=== PATIENT | female | born 1990 | race Two or more races ===

== ENCOUNTER 2025-05-08 11:53 | Emergency (ER) | payer OTHER ==
[~2025-05-08] VITALS: Ht 154.9 cm; Wt 54.1 kg
--- NOTE | 2025-05-08 12:10 | ED.PDOC ---
CAR PUSHER HPI Comments HPI: Poor Historian. Past Medical History: Past Surgical History: Patient describes his symptoms as bloating. Symptoms are chronic in nature for the last seven months. Patient is currently on her menstrual cycle. 34y F who presents to the ED for chief complaint of abdominal pain. - pt states she has been having R sided abdominal pain for the past 7 months, chronic in nature - pt states the pain is radiating to the umbilicus, with associated bloating like sensation, with associated exacerbation of pain during her menstrual cycle and while voiding - pt states she has been having associated dysuria and diarrhea but denies any other symptoms - pt states she had control patch removed 1 year prior and was on control pills since and had stopped taking control pills over the past 3 months ago - pt states she has noticed increased pain during these past 3 months - pt states due to moving from [place] to the [facility], she has not yet e stablished care with OB regarding her concerns - pt otherwise denies any other symptoms past medical history: denies past surgical history: Left forearm surgery allergies: denies medications: denies social history: denies tobacco use, denies ETOH use, denies drug use REVIEW OF SYSTEMS: CONSTITUTIONAL: Denies acute: fever, diaphoresis, chills, generalized weakness. HEAD: Denies acute: headache, photophobia Eyes: Denies acute: Double vision, vision loss, eye pain, eye discharge. EARS: Denies acute: tinnitus, hearing loss, ear discharge, ear pain, THROAT: Denies acute: sore throat, swelling, difficulty swallowing , pain with swallowing, change in voice. NECK: Denies acute: neck pain, neck swelling, stiff neck. HEART: Denies acute : chest pain, palpitations, LUNGS: Denies acute: SOB, wheezing, cough, hemoptysis ABDOMEN: Denies acute: Nausea, Vomiting, diarrhea, melena , hematemesis, hematochezia SKIN: Denies acute: rash, redness, lesions, itchiness. EXTREMITIES: Denies acute: calf pain, numbness, tingling, weakness, denies pain in extremity. Denies acute: Low back pain. Neuro: Denies acute: focal neurological deficit, motor or sensory focal neurological deficit, tremors, seizure like activity, confusion, dizziness, change in mental status, loss of bowel or bladder function, cauda equina like symptoms. : Denies acute: dysuria, hematuria, flank pain, increase in urinary frequency. PSYCH: Denies acute: hallucination, suicidal ideation, homicidal ideation. FEMALE: Denies acute: abnormal vaginal bleeding, foul odor, unusual discharge. PHYSICAL EXAM: General: ----minimal---acute distress, awake and alert. Head: normocephalic, atraumatic. Neck: supple, trachea is midline, no swelling. Throat: Normal phonation. Eyes:, no erythema, no purulent discharge, no proptosis, no icterus. Heart: regular rate, regular rhythm, no significant murmur appreciated. Lungs: no apparent respiratory distress, Able to speak in full sentences. No wheezing, no rhonchi, no crackles. No stridors Clear to auscultation bilaterally. Abdomen: Minimal nonspecific discomfort in the periumbilical/right sided tender to palpation, non distended, soft, no guarding, no rebound, + bowel sounds. Neuro: Awake, Alert, oriented to name, self, situation, follows commands GCS=15. Speech is normal. Skin: no petechia, no purpura, no cyanosis, non-pale, not jaundice. Lower extremities: --no - Pitting edema no deformity, no focal swelling, no calf TTP. Makes eye contact. moves all four extremities. Face: no apparent facial droop. Ambulating in the ED independently. ED COURSE: DISCLAIMER: This medical document was created using an electronic medical record system with voice recognition software and computerized dictation system. Although this document has been carefully reviewed, there might still be some phonetic and typographical errors. Occasional wrong-word or "sound-alike" substitutions may have occurred due to the inherent limitations of voice recognition software. These areas are purely typographical due to imperfections of the software programs and do not reflect any compromise in the patient's medical care. Please read the chart carefully and recognize, using context, where these substitutions have occurred. Chief Complaint: Abdominal Pain Time Seen by MD: 11:55 Reviewed Notes: Medications, Allergies Allergies: Coded Allergies: NO KNOWN ALLERGIES (Unverified , 05/08/25) Home Meds Active Scripts Nitrofurantoin Monohydrate Mac (Macrobid) 100 Mg Cap, 100 MG PO BID for 7 Days, #14 CAP Prov:LALITHA CAMPBELL DO 05/08/25 Information Source: Patient Mode of Arrival: Ambulatory Brought in by: self Was a procedure done? Was a procedure done?: No X-Ray, Labs, Meds, VS Vital Signs Date Time Temp Pulse Resp B/P (MAP) Pulse Ox O2 Delivery O2 Flow Rate FiO2 05/08/25 17:45 98.3 92 16 105/53 (70) 98 98.3 05/08/25 16:35 84 79 96 Room Air* 0 21 05/08/25 14:47 66 18 99 Room Air 05/08/25 14:47 97.9 66 18 101/62 (75) 99 97.9 05/08/25 12:00 98.7 74 18 109/69 (82) 99 98.7 Lab Test 05/08/25 13:15 05/08/25 12:48 Range/Units Urine Color Light-orange Yellow Urine Clarity Cloudy H Clear Urine pH 6.0 5.0-9.0 Urine Specific [place] 1.044 H 1.001-1.035 Urine Protein 1+ H Negative Urine Ketones 2+ H Negative Urine Blood 3+ H Negative /uL Urine Nitrite Negative Negative Urine Bilirubin Negative Negative Urine Urobilinogen 2 H Negative mg/dL Urine Leukocyte Esterase Negative Negative /uL Urine RBC 674 0 - 4 /hpf Urine Microscopic WBC 2 0-5 /HPF Urine Squamous Epithelial Cells Few <5 /hpf Urine Bacteria Few H None Seen /hpf Urine Mucus Few None Seen Urine Glucose Normal Normal mg/dL Urine Test Negative Negative White Blood Count 9.7 4.4-10.8 10^3/uL Red Blood Count 4.56 4.0-5.20 10^6/uL Hemoglobin 13.2 12.2-16.2 g/dL Hematocrit 39.5 36.0-46.0 % Mean Corpuscular Volume 86.6 80.0-100.0 fL Mean Corpuscular Hemoglobin 28.9 28.0-32.0 pg Mean Corpuscular Hemoglobin Concent 33.4 32.0-36.0 g/dL Red Cell Distribution Width 14.5 H 11.8-14.3 % Platelet Count 214 140-450 10^3/uL Mean Platelet Volume 7.8 6.9-10.8 fL Neutrophils (%) (Auto) 78.7 37.0-80.0 % Lymphocytes (%) (Auto) 13.6 10.0-50.0 % Monocytes (%) (Auto) 7.1 0.0-12.0 % Eosinophils (%) (Auto) 0.4 0.0-7.0 % Basophils (%) (Auto) 0.2 0.0-2.0 % Neutrophils # (Auto) 7.6 1.6-8.6 10 ^3/uL Lymphocytes # (Auto) 1.3 0.4-5.4 10 ^3/uL Monocytes # (Auto) 0.7 0-1.3 10 ^3/uL Eosinophils # (Auto) 0 0-0.8 10 ^3/uL Basophils # (Auto) 0 0-0.2 10 ^3/uL Nucleated Red Blood Cells 0.1 % Sodium Level 141 136-145 mmol/L Potassium Level 3.8 3.5-5.1 mmol/L Chloride Level 108 H 98-107 mmol/L Carbon Dioxide Level 24 20-31 mmol/L Anion Gap 9 5-15 Blood Urea Nitrogen 15 9-23 mg/dL Creatinine 0.83 0.550-1.02 mg/dL Glomerular Filtration Rate Calc 94 >90 mL/min BUN/Creatinine Ratio 18.1 10.0-20.0 Serum Glucose 97 74-106 mg/dL Calcium Level 9.6 8.7-10.4 mg/dL Total Bilirubin 0.5 0.2-1.0 mg/dL Aspartate Amino Transferase (AST) 21 <34 U/L Alanine Aminotransferase (ALT) 19 7-40 U/L Alkaline Phosphatase 75 46-116 U/L Total Protein 7.0 5.7-8.2 g/dL Albumin 4.3 3.2-4.8 g/dL Current Medications Medications (Trade) Dose Ordered Sig/Amanuel Route Start Time Stop Time Status Last Admin Ketorolac Tromethamine (Toradol Injection) 30 mg ONCE ONCE IM 05/08/25 14:30 05/08/25 14:31 DC 05/08/25 14:[address] [address] Ph: [phone] DIAGNOSTIC IMAGING Diagnostic Imaging Report : [id number] Signed PATIENT: ALVAREZ SANCHEZACCT: [id number] UNIT: [id number] : 1990 LOC: ER ROOM / BED: / AGE / SEX: 34 / F ADM STATUS: REG ER SERVICE 1211 ORDERING PHYSICIAN: LALITHA CAMPBELL DO PROCEDURE(s): PELUS - PELVIC REASON: menstrual bloating, on cycle now ORDER NUMBER(s): [id number], ACCESSION NUMBER(s): [id number] Procedure: US PELVIC Study Date and Requested Time: 05/08/2025 01:53 PM Study Description: US PELVIC History: menstrual bloating, on cycle now Comparison: None Technique: Multiple transabdominal and transvaginal high resolution roberts-scale images obtained of the uterus and adnexa with color Doppler for evaluation of adnexal blood flow and vascularity as indicated. Findings: Uterus measures 8.6 x 7.2 x 4.7 cm with heterogeneous echotexture. Endometrial thickness of 0.4 cm. The cervix is unremarkable. Right ovary measures 2.7 x 1 x 2.4 cm with a 1.2 cm cyst /dominant follicle. Left ovary measures 3.7 x 2 x 2.7 cm with a 1.9 cm cyst /dominant Tian. Normal ovarian color Doppler flow bilaterally. No evidence of free fluid in the cul-de-sac. Incidental noting of minimal free fluid within the right lower abdominal quadrant. Impression: Bilateral small ovarian cysts/dominant follicles. Incidental noting of minimal free fluid within the right lower abdominal quadrant. ATED BY: KLAUDIA THOMSON DO DICTATED DATE/TIME: 05/08/25 1520 SIGNED BY: KLAUDIA THOMSON DO SIGNED DATE/TIME: 05/08/25 1520 CC: Patient Education/Counseling: Diagnosis, Treatment Family Education/Counseling: No Family Present Departure 1 Departure Time of Disposition: 15:27 Impression: Primary Impression: Menstrual bloating Additional Impressions: UTI (urinary tract infection) Ovarian cyst Enlarged uterus Disposition: 01 HOME / SELF CARE / HOMELESS Condition: Stable Additional Instructions: Additional instructions: You MUST follow-up with your primary care/family doctor in 1 to 2 days. If you are unable to see your primary care/family doctor, please return to our emergency room for re-assessment and re-evaluation in 1 to 2 days. Return to the emergency room here in our facility or to the nearest ER [facility] if your symptoms change or worsen. CONSULTATIONS: you MUST Follow-up for consultation as soon as possible with: --OB Gyne doctor in 1-2 days. Please call for appointment. You MUST call the consultants office yourself to make an appointment. You may need to arrange that through your insurance and/or your primary/family doctor. If you are unable to see the information systems consultant in 1 to 2 days, you must return to our emergency room (or any other ER of your choice) for re-assessment and re- evaluation. Adequate fluid hydration. Pelvic rest. Below is a copy of your radiological report for follow up: [place] [id number] Ph: [phone] DIAGNOSTIC IMAGING Diagnostic Imaging Report : [id number] Signed PATIENT: ALVAREZ SANCHEZ ACCT: [id number] UNIT: [id number] : 1990 LOC: ER ROOM / BED: / AGE / SEX: 34 / F ADM STATUS: REG ER SERVICE 1211 ORDERING PHYSICIAN: LALITHA CAMPBELL DO PROCEDURE(s): PELUS - PELVIC REASON: menstrual bloating, on cycle now ORDER NUMBER(s): [id number], ACCESSION NUMBER(s): [id number] Procedure: US PELVIC Study Date and Requested Time: 05/08/2025 01:53 PM Study Description: US PELVIC History: menstrual bloating, on cycle now Comparison: None Technique: Multiple transabdominal and transvaginal high resolution roberts-scale images obtained of the uterus and adnexa with color Doppler for evaluation of adnexal blood flow and vascularity as indicated. Findings: Uterus measures 8.6 x 7.2 x 4.7 cm with heterogeneous echotexture. Endometrial thickness of 0.4 cm. The cervix is unremarkable. Right ovary measures 2.7 x 1 x 2.4 cm with a 1.2 cm cyst /dominant follicle. Left ovary measures 3.7 x 2 x 2.7 cm with a 1.9 cm cyst /dominant Tian. Normal ovarian color Doppler flow bilaterally. No evidence of free fluid in the cul-de-sac. Incidental noting of minimal free fluid within the right lower abdominal quadrant. Impression: Bilateral small ovarian cysts/dominant follicles. Incidental noting of minimal free fluid within the right lower abdominal quadrant. ATED BY: KLAUDIA THOMSON DO DICTATED DATE/TIME: 05/08/25 1520 SIGNED BY: KLAUDIA THOMSON DO SIGNED DATE/TIME: 05/08/25 1520 CC: [place] [id number] Ph: [phone] DIAGNOSTIC IMAGING Diagnostic Imaging Report : [id number] Signed PATIENT: ALVAREZ SANCHEZ ACCT: [id number] UNIT: [id number] : 1990 LOC: ER ROOM / BED: / AGE / SEX: 34 / F ADM STATUS: REG ER SERVICE 1701 ORDERING PHYSICIAN: LALITHA CAMPBELL DO PROCEDURE(s): ABPL - CT AB PEL WO CON-NO ORAL OR IV REASON: pelvic pain ORDER NUMBER(s): [id number], ACCESSION NUMBER(s): [id number] Exam: CT CT AB PEL WO CON-NO ORAL OR IV History: pelvic pain Comparison Study: None TECHNIQUE: Multidetector CT of the abdomen was performed from lung bases to pubic symphysis. Imaging was performed without IV contrast. Axial, coronal and sagittal multiplanar reformats were obtained from the axial data set by the technologist. Radiation Dose Information: CT Dose: CTDI volume is 7.19 mGy. Dose-length product is 336.81 mGy*cm FINDINGS: Evaluation of solid organs is limited due to lack of intravenous contrast use. Findings: Lung Bases: No acute or significant lung base finding. Normal heart size. No pleural or pericardial effusion. Liver: The liver is normal in size. No focal lesions. Gallbladder and Biliary Tree: Unremarkable Spleen: Unremarkable Pancreas: The pancreas is grossly normal in appearance. Adrenal Glands: Unremarkable Kidneys: Kidneys are grossly normal without calculi or hydronephrosis. Bladder: Grossly unremarkable for degree of distention. Bowel: The stomach is grossly normal in appearance. Small bowel and colon are normal in caliber and distribution. The appendix is not visualized; however, no secondary findings of acute appendicitis identified. Ascites: Absent Lymphadenopathy: No mesenteric, retroperitoneal or periportal lymphadenopathy. Abdominal Wall and Mesentery: Unremarkable. Vasculature: The visualized abdominal aorta is normal in size and caliber. Evaluation of abdominal and pelvic vessels is limited due to lack of intravenous contrast. Pelvic Organs: Uterus is mildly enlarged and measures 9 by 5.8 by 8.7 cm. Musculoskeletal: No aggressive focal bony lesions, acute fractures or dislocation. Soft tissues: Unremarkable IMPRESSION: 1. No findings of bowel obstruction. 2. No calcified gallstones 3. No nephrolithiasis or hydronephrosis. 4. Mildly enlarged uterus measuring 9 x 5.8 x 8.7 cm. Radiation optimization: All CT scans at this facility use at least one of these dose optimization techniques: automated exposure control mA and/or kV adjustment per patient size (includes targeted exams where dose is matched to clinical indication) or iterative reconstruction. ATED BY: MATHEUS JOHNSTON Jr., DO DICTATED DATE/TIME: 05/08/251755 SIGNED BY: MATHEUS JOHNSTON Jr., SIGNED DATE/TIME: 05/08/251755 CC: e-Prescriptions Nitrofurantoin Monohydrate Mac (Macrobid) 100 Mg Cap 100 MG PO BID for 7 Days, #14 CAP Prov: LALITHA CAMPBELL DO 05/08/25 Discharged With: Self Critical Care Note Critical Care Time?: No I personally scribed for LALITHA CAMPBELL DO ([email or web address]) on 05/08/25 at 12:10. Electronically submitted by Saul Phillips ([email or web address] I personally scribed for LALITHA CAMPBELL DO ([email or web address]) on 05/08/25 at 12:51. Electronically submitted by Saul Phillips ([facility] I personally scribed for LALITHA CAMPBELL DO ([email or web address]) on 05/08/25 at 15:29. Electronically submitted by Saul Phillips ([facility] LALITHA CAMPBELL DO May 08, 2025 12:10
[2025-05-08 12:56] LABS: Basophils # (auto) 0 10 ^3/uL (0-0.2); Basophils % (auto) 0.2 % (0.0-2.0); Eosinophils # (auto) 0 10 ^3/uL (0-0.8); Eosinophils % (auto) 0.4 % (0.0-7.0); Hematocrit 39.5 % (36.0-46.0); Hemoglobin 13.2 g/dL (12.2-16.2); Lymphocytes # (auto) 1.3 10 ^3/uL (0.4-5.4); Lymphocytes % (auto) 13.6 % (10.0-50.0); Mean Corpuscular Hemoglobin 28.9 pg (28.0-32.0); Mean Corpuscular Hgb Conc. 33.4 g/dL (32.0-36.0); Mean Corpuscular Volume 86.6 fL (80.0-100.0); Monocytes # (auto) 0.7 10 ^3/uL (0-1.3); Monocytes % (auto) 7.1 % (0.0-12.0); Neutrophils # (auto) 7.6 10 ^3/uL (1.6-8.6); Neutrophils % (auto) 78.7 % (37.0-80.0); Nucleated Red Blood Cells % 0.1 %; Platelet Count (auto) 214 10^3/uL (140-450); Red Blood Cells 4.56 10^6/uL (4.0-5.20); Red Cell Distribution Width 14.5 % (11.8-14.3); White Blood Cell 9.7 10^3/uL (4.4-10.8)
[2025-05-08 13:35] LABS: Urine Bacteria FEW /hpf (None Seen); Urine Blood 3+ /uL (Negative); Urine Color Light-Orange (Yellow); Urine Mucus FEW (None Seen); Urine Protein, UAD 1+ (Negative); Urine Specific Gravity 1.044 (1.001-1.035); Urine Squamous Epithelial Cell FEW /hpf (<5); Urine Urobilinogen 2 mg/dL (Negative); Urine WBC 2 /HPF (0-5)
[2025-05-08 13:37] LABS: Urine Clarity Cloudy (Clear)
[2025-05-08 14:00] LABS: Alanine Aminotransferase 19 U/L (7-40); Albumin 4.3 g/dL (3.2-4.8); Alkaline Phosphatase 75 U/L (46-116); Anion Gap 9 (5-15); Aspartate Aminotransferase 21 U/L (<34); BUN/Creatinine Ratio 18.1 (10.0-20.0); Bilirubin, Total 0.5 mg/dL (0.2-1.0); Blood Urea Nitrogen 15 mg/dL (9-23); Calcium 9.6 mg/dL (8.7-10.4); Carbon Dioxide 24 mmol/L (20-31); Glucose 97 mg/dL (74-106); Potassium 3.8 mmol/L (3.5-5.1); Sodium 141 mmol/L (136-145)
[2025-05-08 14:03] LABS: Chloride 108 mmol/L (98-107)
[2025-05-08] MEDS: KETOROLAC TROMETH 30 MG/ML 1ML VIAL IM ONE (14:43)
--- NOTE | 2025-05-08 15:22 | DVH ---
Procedure: US PELVIC Study Date and Requested Time: 05/08/2025 01:53 PM Study Description: US PELVIC History: menstrual bloating, on cycle now Comparison: None Technique: Multiple transabdominal and transvaginal high resolution roberts-scale images obtained of the uterus and adnexa with color Doppler for evaluation of adnexal blood flow and vascularity as indicat ed. Findings: Uterus measures 8.6 x 7.2 x 4.7 cm with heterogeneous echotexture. Endometrial thickness of 0.4 cm. The cervix is unremarkable. Right ovary measures 2.7 x 1 x 2.4 cm with a 1.2 cm cyst /dominant follicle. Left ovary measures 3.7 x 2 x 2.7 cm with a 1.9 cm cyst /dominant Tian. Normal ovarian color Doppler flow bilaterally. No evidence of free fluid in the cul-de-sac. Incidental noting of minimal free fluid within the right lower abdominal quadrant. Impression: Bilateral small ovarian cysts/dominant follicles. Incidental noting of minimal free fluid within the right lower abdominal quadrant.
[2025-05-08 16:35] VITALS: PULSE 84; RESP 79; O2SAT 96
[2025-05-08] MEDS ORDERED: NITR-87 PO (16:57)
[2025-05-08 17:45] VITALS: BP 105/53; PULSE 92; RESP 16; TEMP 98.3; O2SAT 98
[2025-05-08] MEDS: HYDROcodone-ACET 5/325MG TAB PO ONE (17:45)
--- NOTE | 2025-05-08 17:59 | DVH ---
Exam: CT CT AB PEL WO CON-NO ORAL OR IV History: pelvic pain Comparison Study: None TECHNIQUE: Multidetector CT of the abdomen was performed from lung bases to pubic symphysis. Imaging was performed without IV contrast. Axial, coronal and sagittal multiplanar reformats were obtained fr om the axial data set by the technologist. Radiation Dose Information: CT Dose: CTDI volume is 7.19 mGy. Dose-length product is 336.81 mGy*cm FINDINGS: Evaluation of solid organs is limited due to lack of intravenous contrast use. Findings: Lung Bases: No acute or significant lung base finding. Normal heart size. No pleural or pericardial effusion. Liver: The liver is normal in size. No focal lesions. Gallbladder and Biliary Tree: Unremarkable Spleen: Unremarkable Pancreas: The pancreas is grossly normal in appearance. Adrenal Glands: Unremarkable Kidneys: Kidneys are grossly normal without calculi or hydronephrosis. Bladder: Grossly unremarkable for degree of distention. Bowel: The stomach is grossly normal in appearance. Small bowel and colon are normal in caliber and d istribution. The appendix is not visualized; however, no secondary findings of acute appendicitis id entified. Ascites: Absent Lymphadenopathy: No mesenteric, retroperitoneal or periportal lymphadenopathy. Abdominal Wall and Mesentery: Unremarkable. Vasculature: The visualized abdominal aorta is normal in size and caliber. Evaluation of abdominal a nd pelvic vessels is limited due to lack of intravenous contrast. Pelvic Organs: Uterus is mildly enlarged and measures 9 by 5.8 by 8.7 cm. Musculoskeletal: No aggressive focal bony lesions, acute fractures or dislocation. Soft tissues: Unremarkable IMPRESSION: 1. No findings of bowel obstruction. 2. No calcified gallstones 3. No nephrolithiasis or hydronephrosis. 4. Mildly enlarged uterus measuring 9 x 5.8 x 8.7 cm. Radiation optimization: All CT scans at this facility use at least one of these dose optimization te chniques: automated exposure control mA and/or kV adjustment per patient size (includes targeted exa ms where dose is matched to clinical indication) or iterative reconstruction.
== END 2025-05-08 18:31 | disposition home or self-care (01) ==
LOC: ER 11:53
DX: N92.0 Excessive and frequent menstruation with regular cycle (principal); N39.0 Urinary tract infection, site not specified; N83.202 Unspecified ovarian cyst, left side; N83.201 Unspecified ovarian cyst, right side; N85.2 Hypertrophy of uterus
CPT/HCPCS: 36415; 74176; 76856; 80053; 81001; 81025; 85025; 96372; 99285; J1885